=== PATIENT | female | born 1985 ===

== ENCOUNTER 2019-03-23 11:31 | Outpatient (CLI) | payer BC ==
--- NOTE | 2019-03-23 13:31 | RAD ---
HYSTEROSALPINGOGRAM: CLINICAL HISTORY: Infertility Fluoroscopic time: 0.4 minutes; 4.87 giovanni per centimeter square. PROCEDURE: Informed consent was obtained. Utilizing standard sterile speculum exam, the cervix was lo calized and then sterilized with Betadine solution. A small catheter was then utilized to cannulate the endometrial canal, after which a low pressure instillation of contrast was performed, with subseq uent radiographic imaging. No procedural complications were present. Patient tolerated the procedure well. FINDINGS: Endometrial cavity: Unremarkable Fallopian tubes: Patent, bilaterally, with free spill. IMPRESSION: Normal HSG
== END 2019-03-23 11:32 | disposition home or self-care (01) ==
LOC: RAD 11:31
PROVIDERS: ATTEND Obstetrics & Gynecology Reproductive Endocrinology
DX: Z31.41 Encounter for fertility testing (principal)
CPT/HCPCS: 58340; 74740